=== PATIENT | female | born 1970 | race Two or more races ===

== ENCOUNTER 2025-01-15 16:48 | Emergency (ER) | payer MEDICAID, OTHER ==
[~2025-01-15] VITALS: Ht 160 cm; Wt 49.7 kg
--- NOTE | 2025-01-15 19:27 | ED.PDOC ---
Eye-HPI HPI Comments 54-YEAR-OLD FEMALE PRESENTS TO THE ED CHIEF COMPLAINT DENTAL PAIN. COMPLAINING OF LEFT-SIDED DENTAL PAIN X2 DAYS NOTES SHARP PAIN AND ACHINESS LEFT JAW SHOOTING UP LEFT SIDE OF HER FACE. RATES PAIN 8/10 ON PAIN SCALE. DENIES FEVER, CHILLS, NAUSEA, OR VOMITING OR DIFFICULTY SWALLOWING OR BREATHING. Chief Complaint: Tooth Pain Time Seen by MD: 17:40 Primary Care Provider: SARATH Alvarez Notes: Nurses Notes, Medications, Allergies Allergies: Coded Allergies: NO KNOWN ALLERGIES (Unverified , 01/15/25) Home Meds Active Scripts Ibuprofen (Ibuprofen) 800 Mg Tab, 1 TAB PO TID PRN for 4 Days, #12 TAB Prov:FARZAD,UGO MECHANICAL TECH 01/15/25 Amoxicillin & Pot Clavulanate (AUGMENTIN TABLET) 875 Mg Tb, 875 MG PO BID for 7 Days, #14 TAB Prov:FARZAD,UGO MECHANICAL TECH 01/15/25 Mode of Arrival: Ambulatory Past Medical History PAST MEDICAL HISTORY: Denies Surgical History: Denies all surgeries RECRUITMENT ASSISTANT History: No Pertinent RECRUITMENT ASSISTANT History Family History Family History: Reviewed,noncontributory to illness Social History Smoker: Non-Smoker Alcohol: Denies ETOH Use Drugs: Denies Drug Use Constitutional: denies: chills, diaphoresis, fatigue, fever, malaise, sweats, weakness, others EENTM: denies: blurred vision, double vision, ear bleeding, ear discharge, ear drainage, ear pain, ear ringing, eye pain, eye redness, hearing loss, mouth pain, mouth swelling, nasal discharge, nose bleeding, nose congestion, nose pain, photophobia, tearing, throat pain, throat swelling, voice changes, others Respiratory: denies: cough, hemoptysis, orthopnea, SOB at rest, shortness of breath, SOB with excertion, stridor, wheezing, others Cardiovascular: denies: chest pain, dizzy spells, diaphoresis, Dyspnea on exertion, edema, irregular heart beat, left arm pain, lightheadedness, palpitations, PND, syncope, others Gastrointestinal: denies: abdomen distended, abdominal pain, blood streaked bowels, constipated, diarrhea, dysphagia, difficulty swallowing, hematemesis, melena, nausea, poor appetite, poor fluid intake, rectal bleeding, rectal pain, vomiting, others Genitourinary: denies: abnormal vagina bleeding, burning, dyspareunia, dysuria, flank pain, frequency, hematuria, incontinence, pain, , vagina discharge, urgency, others Neurological: denies: dizziness, fainting, headache, left sided numbness, left sided weakness, numbness, paresthesia, pre-existing deficit, right sided numbness, right sided weakness, seizure, speech problems, tingling, tremors, weakness, others Musculoskeletal: denies: back pain, gout, joint pain, joint swelling, muscle pain, muscle stiffness, neck pain, others Integumetry: denies: bruises, change in color, change in hair/nails, dryness, laceration, lesions, lumps, rash, wounds, others Allergic/Immunocompromised: denies: Difficulty Healing, Frequent Infections, Hives, Itching, others Hematologic/Lymphatic: denies: anemia, blood clots, easy bleeding, easy bruising, swollen glands, others Endocrine: denies: excessive hunger, excessive sweating, excessive thirst, excessive urination, flushing, intolerance to cold, intolerance to heat, unexplained weight gain, unexplained weight loss, others Psychiatric: denies: anxiety, bipolar disorder, depression, hopeless, panic disorder, schizophrenia, sleepless, suicidal, others Physical Exam General Appearance: No Apparent Distress, Normal HEENT: Pharynx Normal, TMs Normal, Other (LEFT UPPER JAW MOLAR 38 MODERATE DECAY NO NOTED OBVIOUS ABSCESS OR BLEEDING) Neck: Full Range of Motion, Non-Tender Respiratory: Lungs Clear, No Respiratory Distress, Normal Breath Sounds Cardiovascular: No Murmur, Normal Peripheral Pulses, Regular Rate/Rhythm Breast Exam: Deferred Gastrointestinal: Non Tender, Soft Genitalia: Deferred Pelvic: Deferred Rectal: Deferred Extremities: Normal capillary refill, Normal inspection, Normal range of motion, Non-tender, No pedal edema Musculoskeletal : Apperance: Normal Neurologic: Alert, travel nurse II-XII nml as Tested, No Motor Deficits, Normal Affect, Normal Mood, No Sensory Deficits Cerebellar Function: Normal Reflexes: Normal Skin: Dry, Normal Color, Warm Lymphatic: No Adenopathy Was a procedure done? Was a procedure done?: No EENT DIFF Eye: N/A Ear: N/A Nose: N/A Mouth: N/A Sore Throat: Riley's Angina X-Ray, Labs, Meds, VS Vital Signs Date Time Temp Pulse Resp B/P (MAP) Pulse Ox O2 Delivery O2 Flow Rate FiO2 01/15/25 19:42 98 19 93 Room Air 01/15/25 19:42 98.6 98 19 106/67 (80) 93 98.6 01/15/25 17:01 98.8 103 18 134/89 (104) 95 98.8 Current Medications Medications (Trade) Dose Ordered Sig/Kayley Route Start Time Stop Time Status Last Admin Ketorolac Tromethamine (Toradol Injection) 60 mg ONCE ONCE IM 01/15/25 19:15 01/15/25 19:16 DC 01/15/25 19:32 Acetaminophen/ Hydrocodone Bitart (Poyen 5/325MG Tab) 2 tab ONCE ONCE PO 01/15/25 19:15 01/15/25 19:16 DC 01/15/25 19:32 Benzocaine (Hurricaine Durand) 1 spr ONCE ONCE MT 01/15/25 19:15 01/15/25 19:16 DC 01/15/25 19:32 Ceftriaxone Sodium (Rocephin) 1,000 mg ONCE ONCE IM 01/15/25 19:15 01/15/25 19:16 DC 01/15/25 19:32 X-Ray, Labs, Meds, VS Comment PATIENT GIVEN TORADOL 60 MG IM, ROCEPHIN 1 G IM, AND NORCO 10 MG P.O. AND HURRICAINE SPRAY. RELIEF IN PAIN REQUESTING DISCHARGE AT THIS TIME. SCRIPT ANTIBIOTICS AND 800 MG IBUPROFEN. TAKE MEDICATIONS PRESCRIBED SIDE EFFECTS DISCUSSED. ADVISED TO FOLLOW UP WITH HER DENTIST CALL ON THURSDAY MAKE AN APPOINTMENT FOR RESOLUTION. ER RETURN PRECAUTIONS GIVEN PATIENT INDICATES UNDERSTANDING AGREES WITH DISCHARGE PLAN OF CARE. Time of 1ST Reevaluation: 20:52 Reevaluation 1ST: Improved Patient Education/Counseling: Diagnosis, Treatment, Prognosis, Need For Follow Up Family Education/Counseling: No Family Present Departure 1 Departure Time of Disposition: 19:56 Impression: Primary Impression: Dental infection Disposition: HOME / SELF CARE / HOMELESS Condition: Stable e-Prescriptions Ibuprofen (Ibuprofen) 800 Mg Tab 1 TAB PO TID PRN for 4 Days, #12 TAB Prov: UGO PANDA 01/15/25 Amoxicillin & Pot Clavulanate (AUGMENTIN TABLET) 875 Mg Tb 875 MG PO BID for 7 Days, #14 TAB Prov: UGO PANDA 01/15/25 Discharged With: Significant Other Critical Care Note Critical Care Time?: No Stability Stability form required: No UGO PANDA Jan 15, 2025 19:27
[2025-01-15] MEDS: cefTRIAXone SOD 1,000 MG VL IM ONE (19:32)
[2025-01-15] MEDS: BENZOCAINE (DENTAL) 20 % SPRAY 60ML MT ONE (19:32)
[2025-01-15] MEDS: KETOROLAC TROMETH 60MG/2ML VIAL IM ONE (19:32)
[2025-01-15] MEDS: HYDROcodone-ACET 5/325MG TAB PO ONE (19:32)
[2025-01-15 19:42] VITALS: BP 106/67; PULSE 98; RESP 19; TEMP 98.6; O2SAT 93
[2025-01-15] MEDS ORDERED: IBUP-1456 PO (19:58)
[2025-01-15] MEDS ORDERED: AUG875T PO (19:58)
== END 2025-01-15 20:06 | disposition home or self-care (01) ==
LOC: ER 17:01
DX: K04.7 Periapical abscess without sinus (principal); Z79.899 Other long term (current) drug therapy
CPT/HCPCS: 96372; 99284; J0696; J1885; 82947; 82962